=== PATIENT | male | born 1975 | race Caucasian/White ===

== ENCOUNTER 2017-07-04 15:18 | Emergency (ER) | payer OTHER ==
[~2017-07-04] VITALS: Ht 185.4 cm; Wt 99.8 kg
[2017-07-04] MEDS ORDERED: BUSPIRONE HCL10 MG PO (15:26)
[2017-07-04 15:44] LABS: ABSOLUTE BASOPHILS 0.1 thou/uL (0.0-0.2); ABSOLUTE EOSINOPHILS 0.3 thou/uL (0.0-0.7); ABSOLUTE LYMPHOCYTES 3.5 thou/uL (0.8-5.3); ABSOLUTE MONOCYTES 0.6 thou/uL (0.0-1.2); ABSOLUTE NEUTROPHILS 4.5 thou/uL (1.6-8.1); BASOPHILS 0.8 %; HEMATOCRIT 43.8 % (42.0-52.0); HEMOGLOBIN 15.7 gm/dL (14.0-18.0); LYMPHOCYTES 39.3 %; MCH 31.5 pg (26.0-34.0); MCHC 35.8 g/dL (28.0-37.0); MCV 87.9 fL (80.0-100.0); MONOCYTES 6.8 %; MPV 8.6 fl. (7.2-11.1); NUCLEATED RBCS 0 /100WBC; PLATELET COUNT* 257 thou/uL (150-400); POLYS 50.1 %; RBC 4.98 mil/uL (4.50-6.00); RDW-CV 12.8 % (10.5-14.5)
[2017-07-04 15:52] LABS: ANION GAP 9 mmol/L (7-16); BUN 18 mg/dL (7-18); CALCIUM 9.1 mg/dL (8.5-10.1); CHLORIDE 102 mmol/L (98-107); CO2 26 mmol/L (21-32); CREATININE 1.3 mg/dL (0.6-1.3); GLUCOSE 196 mg/dL (70-99); POTASSIUM 3.5 mmol/L (3.5-5.1); SODIUM 137 mmol/L (136-145)
[2017-07-04 15:54] LABS: APTT 25.2 Seconds (25.0-31.3); INR 1.1; PROTIME 10.7 Seconds (9.20-11.50)
[2017-07-04 16:11] LABS: ALBUMIN 4.3 g/dL (3.4-5.0); ALKALINE PHOSPHATASE 84 U/L (46-116); CK-MB MASS < 0.5 ng/mL (<0.5-3.6); LIPASE 95 U/L (73-393); MAGNESIUM 2.2 mg/dL (1.8-2.4); NT-PRO BRAIN NAT PEPTIDE 11 pg/mL (<300); SGOT 16 U/L (15-37); SGPT 23 U/L (30-65); TOTAL BILIRUBIN 0.6 mg/dL (<0.1-1.0); TOTAL PROTEIN 7.5 g/dL (6.4-8.2); TROPONIN-I LEVEL <0.06 ng/mL (<0.06)
[2017-07-04 16:32] VITALS: BP 139/71
--- NOTE | 2017-07-05 13:20 | EKG ---
[place] [address] ELECTROCARDIOGRAM REPORT Name: RYAN GUERRERO Room: [facility]#: [id number] Admission: 07/04/17 Attend Phys: Discharge: 07/04/17 Date of : 77 Report #: [id number] THIS REPORT FOR: //name// [facility] ED Test Date: 2017-07-04 Test Time: 15:22:17 Pat Name: RYAN EDWINEVIN Department: Room: Gender: M Retail Leader: : 1975 Requested By: Gerson Barfield Order Number: [id number] MD: Karel Sher Measurements Intervals [place] Rate: 129 P: 75 CO: 150 QRS: -21 QRSD: 92 T: 40 QT: 302 QTc: 443 Interpretive Statements Sinus tachycardia Probable left atrial enlargement Borderline left axis deviation RSR' in V1 or V2, probably normal variant No previous ECG available for comparison Electronically Signed On 07-05-2017 13:20:04 CDT by Karel Sher [email or web address] <ELECTRONICALLY SIGNED> By: Karel Sher MD, [facility] 07/05/17 1320 1522 152 Karel Sher MD, [facility] /EPI
== END 2017-07-04 16:33 | disposition home or self-care (01) ==
LOC: M.ERS 15:18
PROVIDERS: Family Medicine
DX: F41.0 Panic disorder [episodic paroxysmal anxiety] (principal); K21.9 Gastro-esophageal reflux disease without esophagitis; Z88.8 Allergy status to other drugs, medicaments and biological substances

== ENCOUNTER 2019-04-01 10:04 | Emergency (ER) | payer OTHER ==
[~2019-04-01] VITALS: Ht 185.4 cm; Wt 99.8 kg
[~2019-04-01 10:04] MED LIST: BUSPIRONE HCL10 MG PO
[2019-04-01 10:39] LABS: URINE BLOOD 3+ (Negative); URINE CLARITY SL CLOUDY; URINE COLOR BROWN; URINE GLUCOSE-RANDOM NEGATIVE (Negative); URINE KETONES NEGATIVE (Negative); URINE LEUKOCYTES-REFLEX NEGATIVE (Negative); URINE NITRITE-REFLEX NEGATIVE (Negative); URINE PROTEIN 1+ (Negative); URINE SPECIFIC GRAVITY >= 1.030 (1.005-1.030); URINE UROBILINOGEN 0.2 E.U./dl (0.2-1.0)
[2019-04-01 10:39] LABS: ABSOLUTE BASOPHILS 0.1 thou/uL (0.0-0.2); ABSOLUTE EOSINOPHILS 0.4 thou/uL (0.0-0.7); ABSOLUTE LYMPHOCYTES 2.5 thou/uL (0.8-5.3); ABSOLUTE MONOCYTES 0.4 thou/uL (0.0-1.2); ABSOLUTE NEUTROPHILS 3.9 thou/uL (1.6-8.1); BASOPHILS 0.8 %; EOSINOPHILS 5.1 %; HEMATOCRIT 44.9 % (42.0-52.0); LYMPHOCYTES 34.8 %; MCH 31.3 pg (26.0-34.0); MCHC 35.6 g/dL (28.0-37.0); MONOCYTES 6.1 %; MPV 8.3 fl. (7.2-11.1); NUCLEATED RBCS 0 /100WBC; PLATELET COUNT* 251 thou/uL (150-400); POLYS 53.2 %; RDW-CV 13.2 % (10.5-14.5); WBC 7.3 thou/uL (4.0-11.0)
[2019-04-01 10:49] LABS: CALCIUM 8.9 mg/dL (8.5-10.1); CREATININE 1.1 mg/dL (0.6-1.3); POTASSIUM 3.6 mmol/L (3.5-5.1)
[2019-04-01 10:50] LABS: ICTOTEST (BILI CONFIRMATORY) Negative (Negative); URINE BILIRUBIN 1+ (Negative)
[2019-04-01 10:53] LABS: ALBUMIN 4.4 g/dL (3.4-5.0); TOTAL BILIRUBIN 0.5 mg/dL (<0.1-1.0)
[2019-04-01 10:58] LABS: SQUAMOUS 4-10 Moderate /LPF (0-3)
[2019-04-01 10:59] LABS: BACTERIA-REFLEX 1-9 Few /HPF (None Seen); CASTS None Seen /LPF (None Seen); CRYSTALS None Seen /LPF (None Seen); MUCUS None Seen strn/LPF (None Seen); URINE RBC >20 Many /HPF (0-2); URINE WBC-REFLEX 0-5 Rare /HPF (0-5)
[2019-04-01] MEDS ORDERED: IBUPROFEN 800800 M1 PO (13:32)
[2019-04-01] MEDS ORDERED: FLOMAX0.4 MG PO (13:32)
[2019-04-01] MEDS ORDERED: ONDANSETRON HCL4 M2 PO (13:32)
[2019-04-01] MEDS ORDERED: NORCO 5-325 TA1 EAC1 PO (13:32)
[2019-04-01 13:49] VITALS: BP 145/85
== END 2019-04-01 13:51 | disposition home or self-care (01) ==
LOC: M.ERS 10:04
PROVIDERS: Nurse Practitioner Family
DX: N20.1 Calculus of ureter (principal); R11.2 Nausea with vomiting, unspecified; K21.9 Gastro-esophageal reflux disease without esophagitis; Z90.49 Acquired absence of other specified parts of digestive tract; Z87.442 Personal history of urinary calculi; Z88.8 Allergy status to other drugs, medicaments and biological substances